=== PATIENT | male | born 1945 | race African-American/Black ===

== ENCOUNTER 2019-03-02 23:12 | Emergency (ER) | payer OTHER ==
[~2019-03-02] VITALS: Ht 180.3 cm; Wt 95.3 kg
[2019-03-02] MEDS ORDERED: cloNIDine HCL 0.1 MG TAB PO ONE (23:45)
[2019-03-03 00:18] LABS: Basophils # (auto) 0.1 uL; Basophils % (auto) 1.2 % (0.0-2.0); Eosinophils # (auto) 0.1 uL; Eosinophils % (auto) 1.4 % (0.0-7.0); Hematocrit 40.3 % (41.0-53.0); Hemoglobin 13.5 g/dL (13.5-17.5); Lymphocytes # (auto) 1.7 uL; Lymphocytes % (auto) 26.4 % (10.0-50.0); Mean Corpuscular Hemoglobin 28.1 pg (28.0-32.0); Mean Corpuscular Hgb Conc. 33.5 g/dL (32.0-36.0); Monocytes # (auto) 0.9 uL; Monocytes % (auto) 13.5 % (0.0-12.0); Neutrophils # (auto) 3.7 uL; Neutrophils % (auto) 57.5 % (37.0-80.0); Platelet Count (auto) 327 10^3/uL (140-450); White Blood Cell 6.5 10^3/uL (4.4-10.8)
[2019-03-03 00:34] LABS: Albumin 3.6 g/dL (3.4-5.0); Anion Gap 6 (5-15); Calcium 8.6 mg/dL (8.5-10.1); Carbon Dioxide 28 mmol/L (21-32); Chloride 106 mmol/L (98-107); Glucose 106 mg/dL (74-106); Magnesium 2.4 mg/dL (1.6-2.6); Potassium 4.1 mmol/L (3.5-5.1); Sodium 140 mmol/L (136-145)
[2019-03-03 00:42] LABS: Alanine Aminotransferase 21 U/L (16-61); Alkaline Phosphatase 118 U/L (45-117); Aspartate Aminotransferase 14 U/L (15-37); BUN/Creatinine Ratio 14.8; Bilirubin, Total 0.3 mg/dL (0.2-1.0); Blood Urea Nitrogen 20 mg/dL (7-18); GFR African American 67 mL/min; GFR Non-African American 55 mL/min
[2019-03-03 01:37] VITALS: BP 115/78
== END 2019-03-03 02:06 | disposition home or self-care (01) ==
LOC: ER 23:16
DX: I16.0 Hypertensive urgency (principal)
CPT/HCPCS: 36415; 80053; 83735; 84484; 85025; 93005